=== PATIENT | male | born 1945 | race Two or more races ===

== ENCOUNTER 2019-03-26 13:55 | Observation (INO) | payer OTHER ==
[~2019-03-26] VITALS: Ht 172.7 cm; Wt 95.3 kg
[2019-03-26 14:09] VITALS: Ht 172.7 cm; Wt 95.3 kg
[2019-03-26 14:34] LABS: BASOPHIL % 1.7 % (0-2); CALCIUM 9.3 mg/dL (8.5-10.1); CARBON DIOXIDE 24.1 mmol/L (21-32); CHLORIDE SERUM 105 mmol/L (98-107); CREATININE SERUM 1.9 mg/dL (0.7-1.3); GLUCOSE SERUM 163 mg/dL (74-106); PLATELET COUNT 198 x10^3mcL (130-400); POTASSIUM SERUM 4.2 mmol/L (3.5-5.1); RED CELL DISTRIBUTION WIDTH 13.8 % (11.5-14.5); SODIUM SERUM 138 mmol/L (136-145)
[2019-03-26 14:39] LABS: ALBUMIN 3.7 g/dL (3.4-5.0); ALKALINE PHOSPHATASE 153 U/L (46-116); ALT/SGPT 19 U/L (16-63); AST/SGOT 10 U/L (15-37); BILIRUBIN TOTAL 0.32 mg/dL (0.20-1.00); TOTAL PROTEIN, SERUM 7.6 g/dL (6.4-8.2)
--- NOTE | 2019-03-26 14:52 | NUR ---
PT AMBULATORY WITH STEADY GAIT TO ED BED T2B. NAD NOTED.
--- NOTE | 2019-03-26 15:04 | NUR ---
PT PRESENTS TO THE ED TODAY WITH C/C OF CHEST PAIN. PT REPORTS HE WAS LAYING IN BED THIS MORNING WHEN HE HAD A SUDDEN ONSET ON PRESSURE-LIKE PAIN TO CHEST AT 0730 THIS AM. PT REPORTS PAIN IS WORSE WITH MOVEMENT OF HIS LEFT SHOULDER AND LEFT ARM. PT CHANGED INTO GOWN AND PLACED ON CM AND PULSE OX FOR MONITORING. PT IS AWAKE AND ALERT, RESP E/U, SPEAKING IN FULL CLEAR SENTENCES, NAD NOTED. DR WILKERSON AT BEDSIDE FOR MSE.
--- NOTE | 2019-03-26 15:17 | NUR ---
PT MEDICATED PER MD ORDER, PT VERBALIZED UNDERSTANDING OF MEDICATION PRIOR TO ADMINISTRATION. CALL LIGHT IN REACH, NAD NOTED.
--- NOTE | 2019-03-26 15:57 | NUR ---
PT LAYING COMFORTABLY IN GURNEY, WATCHING TV, RESP E/U, NAD NOTED. REPORTS PAIN IS IMPROVED, RATES PAIN 5/10 AT THIS TIME.
--- NOTE | 2019-03-26 16:59 | NUR ---
PT AMBULATORY WITH STEADY GAIT TO ED RESTROOM. PT DENIES ANY DIZZINESS OR LIGHTHEADEDNESS. PT IS AWAKE AND ALERT, RESP E/U, LAYING COMFORTABLY IN GURNEY, WITH DAUGHTER AT BEDSIDE, NAD NOTED.
--- NOTE | 2019-03-26 17:01 | NUR ---
PT RETURNED FROM ED RESTROOM, STEADY GAIT, NAD NOTED.
[2019-03-26] MEDS ORDERED: ALFUZOSIN HYDRO10 M1 PO (17:14)
[2019-03-26] MEDS ORDERED: D3-50001 TAB (17:15)
[2019-03-26] MEDS ORDERED: NOR5 PO (17:15)
[2019-03-26] MEDS ORDERED: BAYER ASPIRIN R81 MG PO (17:15)
[2019-03-26] MEDS ORDERED: LIPITOR80 MG PO (17:15)
[2019-03-26] MEDS ORDERED: B-12500 MC2 PO (17:16)
[2019-03-26] MEDS ORDERED: FINASTERIDE5 M1 PO (17:16)
[2019-03-26] MEDS ORDERED: GLIPIZIDE10 M2 (17:16)
[2019-03-26] MEDS ORDERED: LAMOTRIGINE (BL25 MG PO (17:17)
[2019-03-26] MEDS ORDERED: COZAAR100 MG PO (17:17)
[2019-03-26] MEDS ORDERED: GOOD SENSE OMEP20 MG PO (17:17)
[2019-03-26] MEDS ORDERED: VIAGRA100 MG PO (17:18)
[2019-03-26] MEDS ORDERED: ACT30 PO (17:18)
[2019-03-26] MEDS ORDERED: JANUVIA100 M1 PO (17:19)
--- NOTE | 2019-03-26 18:07 | NUR ---
PT LAYING IN GURNEY, WATCHING TV, FAMILY AT BEDSIDE. PT REQUESTING FOR A SANDWICH, MADE AWARE.
--- NOTE | 2019-03-26 18:10 | NUR ---
PT GIVEN SANDWICH AND WATER. SITTING UP IN HIGH ESPINAL'S TO EAT.
--- NOTE | 2019-03-26 18:53 | NUR ---
REPORT CALLED TO GARRICK AU ON TELE TO ASSUME CARE FOR PT.
--- NOTE | 2019-03-26 19:16 | NUR ---
PT TRANSPORTED TO TELE AT THIS TIME BY RN KAI AND EMT CHAKA. PT IS AWAKE AND ALERT, RESP E/U, NAD NOTED UPON LEAVING ED. PT VERBALIZED UNDERSTANDING OF PLAN OF CARE PRIOR TO TRANSPORT.
--- NOTE | 2019-03-26 19:30 | NUR ---
RECEIVED PT FROM [facility] NURSEROE. AT BEDSIDE. NO ACUTE DISTRESS OBSERVED. PT DENIES CP OR PRESSURE AT THIS TIME. NSR TO TELE #30. PT STATES HE HAS HX OF SLEEP APNEA AND USES CASE MANAGEMENT DIRECTOR AT NIGHT, WILL OBTAIN ORDERS. COMFORT AND SAFETY MEASURES IMPLEMENTED. ORIENTED TO ROOM AND CALL LIGHT. CALL LIGHT WITHIN REACH. WILL CONTINUE TO MONITOR
[2019-03-26 19:33] VITALS: BP 137/59
--- NOTE | 2019-03-26 19:35 | NUR ---
RECEIVED PT FROM ED VIA SIMIN. ORIENTED PT TO ROOM AND SURROUNDINGS. IV NOTED TO LAC PATENT AND INTACT. TELE 30 PLACED ON PT READING NSR. INSTRUCTED PT ON THE USE OF CALL LIGHT FOR ASSISTANCE. ENDORSED PT TO PRIMARY NURSE MICHELLE
--- NOTE | 2019-03-26 19:46 | NUR ---
PT STATES HE USES CPAP AT NIGHT. DR. GRIFFIN PAGED FOR ORDERS. WILL ANTICIPATE
[2019-03-26 21:00] VITALS: BP 125/53
--- NOTE | 2019-03-26 21:05 | NUR ---
PT EDUCATED FOR NEED OF HEP SQ THERAPY. PT ALSO MADE AWARE FOR NEED TO BE NPO AT MIDNIGHT FOR POSSIBLE STRESS TEST TOMORROW. PT AGREED AND VERBALIZED UNDERSTANDING. PT ALSO STATED HE HAD A STRESS TEST SOME YEARS AGO. ALL QUESTIONS AND CONCERNS ADDRESSED. NPO DOOR TAGS IN PLACE. CALL LIGHT WITHIN REACH. WILL CONTINUE TO MONITOR
--- NOTE | 2019-03-26 21:14 | NUR ---
PT C/O L SIDED SHARP CP RADIATING TO LUE, MEDICATED WITH PRN MORPHINE PER EMAR. PT ALSO OFFERED TO BE PUT ON CPAP BUT REFUSED AT THIS TIME. PT MADE AWARE TO USE CALL LIGHT AT ANY TIME IF HE WOULD LIKE TO BE PUT ON CPAP, PT AGREED AND VERBALIZED UNDERSTANDING. CALL LIGHT WITHIN REACH. WILL CONTINUE TO MONITOR
[2019-03-26 21:22] VITALS: BP 125/53
--- NOTE | 2019-03-27 05:28 | NUR ---
NO SIGNIFICANT CHANGES TO REPORT, PT COMPLIED WITH NURSING CARE THROUGHOUT THE SHIFT WITH NO ACUTE EVENTS OVERNIGHT. NO ACUTE DISTRESS OBSERVED AT THIS TIME, PT LAYING IN BED, BREATHING EVEN AND UNLABORED, AROUSABLE TO VERBAL STIMULI. COMFORT AND SAFETY MEASURES MAINTAINED. ALL NEEDS ASSESSED AND ATTENDED TO. CALL LIGHT WITHIN REACH. WILL CONTINUE TO MONITOR AND ENDORSE CARE TO DAY SHIFT NURSE
[2019-03-27 06:23] VITALS: BP 125/62
[2019-03-27 06:31] LABS: BASOPHIL % 0.4 % (0-2); PLATELET COUNT 171 x10^3mcL (130-400)
[2019-03-27 06:59] LABS: ALKALINE PHOSPHATASE 116 U/L (46-116); ALT/SGPT 19 U/L (16-63); AST/SGOT 14 U/L (15-37); BILIRUBIN TOTAL 0.5 mg/dL (0.20-1.00); CALCIUM 8.7 mg/dL (8.5-10.1); CARBON DIOXIDE 24.9 mmol/L (21-32); CHLORIDE SERUM 106 mmol/L (98-107); CREATININE SERUM 1.6 mg/dL (0.7-1.3); GLUCOSE SERUM 110 mg/dL (74-106); MAGNESIUM 1.7 mg/dL (1.8-2.4); POTASSIUM SERUM 4.4 mmol/L (3.5-5.1); SODIUM SERUM 138 mmol/L (136-145); TOTAL PROTEIN, SERUM 6.7 g/dL (6.4-8.2)
[2019-03-27 07:00] LABS: ALBUMIN 3.1 g/dL (3.4-5.0)
--- NOTE | 2019-03-27 07:00 | NUR ---
RECIEVED REPORT FROM MICHELLE MCCALUEY. ALL QUESTIONS AND CONCERNS ADDRESSED. PT RESTING BUT AROUSABLE. ORIENTED X4. SPEECH CLEAR AND APPROPRIATE. NO FACIAL DROOP NOTED. PERRL. ON ROOM AIR. BREATHING E/U. NO S/S OF RESP DISTRESS NOTED. DENIES SOB OR CP AT THIS TIME. SKIN IS WARM/DRY TO TOUCH, RIZVI/BROWN IN COLOR. PIV TO LAC INATCT, PORT PATENT, DRESSING CDI. NS INFUSING @ 60 ML/HR. SKIN INTACT.
--- NOTE | 2019-03-27 08:45 | NUR ---
DR. CAMPO AT BEDSIDE ASSESSING PT. UPDATES PROVIDED. PT SCHEDULED FOR [facility] STRESS TEST IN THE AFTERNOON.
[2019-03-27 09:51] VITALS: BP 130/91
--- NOTE | 2019-03-27 10:48 | NUR ---
ECHO AT BEDSIDE.
--- NOTE | 2019-03-27 12:04 | NUR ---
PT TAKEN BY NUCLEAR MEDICINE AT THIS TIME. PT SALINE-LOCKED. NO S/S OF INFILTRATION. AMBULATED ONTO WHEELCHAIR WITH STEADY GAIT. NO COMPLICATIONS
--- NOTE | 2019-03-27 12:45 | NUR ---
PT TAKEN TO [facility] AT THIS TIME VIA WHEELCHAIR. NO S/S OF SOB OR CP.
[2019-03-27 13:39] VITALS: BP 146/64
[2019-03-27 14:21] VITALS: BP 146/64
--- NOTE | 2019-03-27 15:10 | NUR ---
PT BACK FROM [facility] WITH NO ACUTE DISTRESS OR COMPLICATIONS. AAOX4. DENIES HEADACHE. PERRL. SPEECH CLEAR AND APPROPRIATE. NO FACIAL DROOP. BREATHING E/U ON ROOM AIR. NO S/S OF RESP DISTRESS. PIV TO L AC INTACT, PORT PATENT, DRESSING CDI - SALINE-LOCKED. AT BEDSIDE. X3 SIDE RAILS UP, BED IN LOWEST POSITION, CALL LIGHT WITHIN REACH.
--- NOTE | 2019-03-27 17:00 | NUR ---
STRESS TEST AND ECHO RESULTS ARE NEGATIVE. GIVEN THE CLEARANCE TO DISCHARGE PT. IV REMOVED AND TELE BOX REMOVED. DENIES SOB, CP, N/V, OR ABD PAIN. BREATHING E/U. NO S/S OF RESP DISTRESS. PT BEING DISCHARGED VIA WHEELCHAIR BY JASON WHALEN AND PT'S FAMILY.
== END 2019-03-27 17:00 | disposition home or self-care (01) | DRG 313 ==
LOC: ED 13:55 → DU 17:44
PROVIDERS: Emergency Medicine; ADMIT Internal Medicine Pulmonary Disease
DX: R07.9 Chest pain, unspecified (principal); N10 Acute pyelonephritis; R00.1 Bradycardia, unspecified; I12.9 Hypertensive chronic kidney disease with stage 1 through stage 4 chronic kidney disease, or unspecified chronic kidney disease; N18.3 Chronic kidney disease, stage 3 (moderate); E83.42 Hypomagnesemia; E11.22 Type 2 diabetes mellitus with diabetic chronic kidney disease; G47.33 Obstructive sleep apnea (adult) (pediatric); E78.5 Hyperlipidemia, unspecified; D64.9 Anemia, unspecified; Z68.31 Body mass index [BMI] 31.0-31.9, adult
CPT/HCPCS: 82962; A9500; G0378; J1644; J2270; J2785; J3475; J7030; Q0092

== ENCOUNTER 2019-03-29 16:15 | Emergency (ER) | payer OTHER ==
[~2019-03-29] VITALS: Ht 177.8 cm; Wt 96.2 kg
[~2019-03-29 16:15] MED LIST: ACT30 PO; ALFUZOSIN HYDRO10 M1 PO; B-12500 MC2 PO; BAYER ASPIRIN R81 MG PO; COZAAR100 MG PO; D3-50001 TAB; FINASTERIDE5 M1 PO; GLIPIZIDE10 M2; GOOD SENSE OMEP20 MG PO; JANUVIA100 M1 PO; LAMOTRIGINE (BL25 MG PO; LIPITOR80 MG PO; NOR5 PO; VIAGRA100 MG PO
[2019-03-29 16:17] VITALS: Ht 177.8 cm; Wt 96.2 kg
[2019-03-29 17:29] LABS: BASOPHIL % 1.5 % (0-2); PLATELET COUNT 240 x10^3mcL (130-400); RED CELL DISTRIBUTION WIDTH 13.7 % (11.5-14.5)
[2019-03-29 17:43] LABS: CALCIUM 9.4 mg/dL (8.5-10.1); CHLORIDE SERUM 100 mmol/L (98-107); CREATININE SERUM 1.6 mg/dL (0.7-1.3); GLUCOSE SERUM 179 mg/dL (74-106); POTASSIUM SERUM 4.4 mmol/L (3.5-5.1); SODIUM SERUM 136 mmol/L (136-145)
[2019-03-29 17:47] LABS: ALBUMIN 3.6 g/dL (3.4-5.0); ALKALINE PHOSPHATASE 141 U/L (46-116); ALT/SGPT 21 U/L (16-63); AST/SGOT 11 U/L (15-37); BILIRUBIN TOTAL 0.8 mg/dL (0.20-1.00); LIPASE 116 IU/L (73-393); TOTAL PROTEIN, SERUM 8.2 g/dL (6.4-8.2)
[2019-03-29 17:52] LABS: microscopic required? YES; urine erythrocyte TRACE (NEGATIVE)
[2019-03-29 20:42] VITALS: BP 155/75
== END 2019-03-29 20:42 | disposition home or self-care (01) ==
LOC: ED 16:15
PROVIDERS: Emergency Medicine
DX: M51.36 Other intervertebral disc degeneration, lumbar region (principal); M54.16 Radiculopathy, lumbar region; F32.9 Major depressive disorder, single episode, unspecified; E11.9 Type 2 diabetes mellitus without complications; E78.00 Pure hypercholesterolemia, unspecified; N40.0 Benign prostatic hyperplasia without lower urinary tract symptoms; I10 Essential (primary) hypertension
CPT/HCPCS: J1100; J1885; J7030

== ENCOUNTER 2019-05-04 22:02 | Emergency (ER) | payer OTHER ==
[~2019-05-04] VITALS: Ht 172.7 cm; Wt 91.2 kg
[2019-05-04 22:32] VITALS: Ht 172.7 cm; Wt 91.2 kg
[2019-05-04 23:25] LABS: PLATELET COUNT 238 x10^3mcL (130-400); RED CELL DISTRIBUTION WIDTH 13.3 % (11.5-14.5)
[2019-05-04 23:33] LABS: BASOPHIL % 0 % (0-2)
[2019-05-04 23:54] LABS: ALBUMIN 3.1 g/dL (3.4-5.0); ALKALINE PHOSPHATASE 181 U/L (46-116); ALT/SGPT 23 U/L (16-63); AST/SGOT 12 U/L (15-37); BILIRUBIN TOTAL 0.8 mg/dL (0.20-1.00); CALCIUM 8.6 mg/dL (8.5-10.1); CARBON DIOXIDE 20.3 mmol/L (21-32); CHLORIDE SERUM 88 mmol/L (98-107); CREATININE SERUM 2.3 mg/dL (0.7-1.3); GLUCOSE SERUM 293 mg/dL (74-106); POTASSIUM SERUM 3.8 mmol/L (3.5-5.1); SODIUM SERUM 125 mmol/L (136-145); TOTAL PROTEIN, SERUM 7.7 g/dL (6.4-8.2)
[2019-05-05 02:38] LABS: UA SPECIFIC GRAVITY <=1.005 (1.005-1.035); microscopic required? YES; urine erythrocyte TRACE (NEGATIVE)
[2019-05-05 05:36] VITALS: BP 137/62
== END 2019-05-05 05:36 | disposition short-term general hospital (02) ==
LOC: ED 22:02
PROVIDERS: Emergency Medicine
DX: N49.3 Fournier gangrene (principal); A41.9 Sepsis, unspecified organism; E87.1 Hypo-osmolality and hyponatremia; N28.9 Disorder of kidney and ureter, unspecified; I10 Essential (primary) hypertension; E11.9 Type 2 diabetes mellitus without complications; E78.00 Pure hypercholesterolemia, unspecified; Z88.6 Allergy status to analgesic agent
CPT/HCPCS: 82962; J2543; J3370; J3490; J7030; Q0092